=== PATIENT | male | born 1955 | race Caucasian/White ===

== ENCOUNTER → 2017-01-19 | Outpatient (CLI) | payer MEDICARE ==
[2017-01-19 09:35] LABS: HEMATOCRIT 42.2 % (39.2-51.8); WHITE BLOOD COUNT 5.7 x10^3/uL (3.4-10)
[2017-01-19 09:47] LABS: BLOOD UREA NITROGEN 15 mg/dL (7-18)
[2017-01-19 09:59] LABS: ASPARTATE AMINO TRANSFERASE 18 U/L (15-37)
== END | disposition home or self-care (01) ==
LOC: LAB 09:14
PROVIDERS: ATTEND Internal Medicine
DX: E78.2 Mixed hyperlipidemia (principal); E55.9 Vitamin D deficiency, unspecified; G47.01 Insomnia due to medical condition; G47.62 Sleep related leg cramps; G89.4 Chronic pain syndrome
CPT/HCPCS: 36415; 80053; 80061; 81003; 84443; 85027

== ENCOUNTER → 2017-07-21 | Outpatient (CLI) | payer MEDICARE ==
[2017-07-21 10:37] LABS: MEAN CORPUSCULAR HEMOGLOBIN 26.8 pg (27.5-34.5); MEAN CORPUSCULAR HGB CONC 32.8 g/dL (33.2-36.2); MEAN CORPUSCULAR VOLUME 81.6 fL (81-97); MEAN PLATELET VOLUME 8.3 fL (7.4-10.4); PLATELET COUNT 223 x10^3/uL (130-400); RED BLOOD COUNT 5.03 x10^6/uL (4.38-5.82)
[2017-07-21 10:48] LABS: ALANINE AMINOTRANSFERASE 37 U/L (12-78); ALBUMIN 3.9 g/dL (3.4-5.0); ANION GAP 6 mmol/L (5-15); CALCIUM 8.9 mg/dL (8.5-10.1); CHLORIDE 109 mmol/L (98-107); CREATININE 1.08 mg/dL (0.7-1.3)
[2017-07-21 10:52] LABS: ALKALINE PHOSPHATASE 48 U/L (45-117); BILIRUBIN,TOTAL 0.7 mg/dL (0.2-1.0); CHOL/HDL RATIO 3.3; CHOLESTEROL, TOTAL 130 mg/dL (140-239); HDL CHOL % 31 % (26-37); HDL CHOLESTEROL (DIRECT) 40 mg/dL (40-60); LDL CHOLESTEROL,CALCULATED 58 mg/dL (54-169); LDL/HDL RATIO 1.5 (0.5-3.0); TOTAL PROTEIN 7.4 g/dL (6.4-8.2); TRIGLYCERIDES 158 mg/dL (50-200); VLDL CHOLESTEROL 32 mg/dL (0-25)
[2017-07-21 12:22] LABS: HEMOGLOBIN A1C 5.3 % (4.2-6.3)
== END | disposition home or self-care (01) ==
LOC: LAB 10:21
PROVIDERS: ATTEND Internal Medicine
DX: Z12.5 Encounter for screening for malignant neoplasm of prostate (principal); E78.2 Mixed hyperlipidemia; K21.9 Gastro-esophageal reflux disease without esophagitis; G47.01 Insomnia due to medical condition; G47.62 Sleep related leg cramps; R73.09 Other abnormal glucose; E55.9 Vitamin D deficiency, unspecified
CPT/HCPCS: 36415; 80053; 80061; 82306; 83036; 83735; 84153; 85027; G0103

== ENCOUNTER → 2017-08-07 | Outpatient (CLI) | payer MEDICARE ==
[2017-08-07 11:18] LABS: ABSOLUTE RETICS # 0.166 x10^6/uL (0.5-1.5); RED BLOOD COUNT 5.17 x10^6/uL (4.38-5.82); RETICULOCYTE COUNT % 3.2 % (0.5-1.5)
[2017-08-07 12:12] LABS: % IRON SATURATION 20 % (20-55); IRON LEVEL 58 mcg/dL (65-175); TOTAL IRON BINDING CAPACITY 296 mcg/dL (250-450)
[2017-08-07 12:18] LABS: FOLATE LEVEL > 20.0 ng/mL (3.1-17.5)
== END | disposition home or self-care (01) ==
LOC: LAB 10:54
PROVIDERS: ATTEND Internal Medicine
DX: D64.9 Anemia, unspecified (principal); K21.9 Gastro-esophageal reflux disease without esophagitis; E78.2 Mixed hyperlipidemia; R73.01 Impaired fasting glucose
CPT/HCPCS: 36415; 82607; 82746; 83036; 83540; 83550; 85014; 85018; 85045

== ENCOUNTER 2018-07-23 07:41 | Outpatient (CLI) | payer MEDICARE ==
[2018-07-23 07:56] LABS: MEAN CORPUSCULAR HGB CONC 32.6 g/dL (33.2-36.2); MEAN CORPUSCULAR VOLUME 82.8 fL (81-97); MEAN PLATELET VOLUME 7.9 fL (7.4-10.4); PLATELET COUNT 243 x10^3/uL (130-400); RED BLOOD COUNT 5.13 x10^6/uL (4.38-5.82)
[2018-07-23 08:02] LABS: MICROSCOPIC NOT IND
[2018-07-23 08:09] LABS: ALANINE AMINOTRANSFERASE 35 U/L (12-78); ALBUMIN 3.9 g/dL (3.4-5.0); ANION GAP 7 mmol/L (5-15); CHLORIDE 109 mmol/L (98-107); CHOLESTEROL, TOTAL 121 mg/dL (140-239); CREATININE 1.14 mg/dL (0.7-1.3)
[2018-07-23 08:11] LABS: ALKALINE PHOSPHATASE 52 U/L (45-117); BILIRUBIN,TOTAL 0.7 mg/dL (0.2-1.0); CHOL/HDL RATIO 3.2; HDL CHOL % 31 % (26-37); HDL CHOLESTEROL (DIRECT) 38 mg/dL (40-60); LDL CHOLESTEROL,CALCULATED 43 mg/dL (54-169); LDL/HDL RATIO 1.1 (0.5-3.0); TOTAL PROTEIN 7.5 g/dL (6.4-8.2); TRIGLYCERIDES 200 mg/dL (50-200); VLDL CHOLESTEROL 40 mg/dL (0-25)
== END 2018-07-23 23:59 | disposition home or self-care (01) ==
LOC: LAB 07:41
PROVIDERS: ATTEND Internal Medicine
DX: Z12.5 Encounter for screening for malignant neoplasm of prostate (principal); E55.9 Vitamin D deficiency, unspecified; E78.2 Mixed hyperlipidemia; K21.9 Gastro-esophageal reflux disease without esophagitis; R25.1 Tremor, unspecified; R51 Headache; R53.82 Chronic fatigue, unspecified; R60.0 Localized edema; R73.01 Impaired fasting glucose; R82.90 Unspecified abnormal findings in urine
CPT/HCPCS: 36415; 80053; 80061; 81003; 85027; G0103; 84153

== ENCOUNTER → 2019-01-21 | Outpatient (CLI) | payer MEDICARE ==
[2019-01-21 08:54] LABS: BASOPHILS # (AUTO) 0.03 x10^3/uL (0-0.1); BASOPHILS % (AUTO) 1 % (0-1); EOSINOPHILS # (AUTO) 0.13 x10^3/uL (0-0.4); EOSINOPHILS % (AUTO) 3 % (1-7); LYMPHOCYTES # (AUTO) 1.28 x10^3/uL (1-3.4); LYMPHOCYTES % (AUTO) 27 % (22-44); MD NO; MEAN CORPUSCULAR HEMOGLOBIN 26.8 pg (27.5-34.5); MEAN CORPUSCULAR HGB CONC 32.5 g/dL (33.2-36.2); MEAN CORPUSCULAR VOLUME 82.4 fL (81-97); MEAN PLATELET VOLUME 8.1 fL (7.4-10.4); MONOCYTES # (AUTO) 0.42 x10^3/uL (0.2-0.8); MONOCYTES % (AUTO) 9 % (2-9); NEUTROPHILS # (AUTO) 2.82 x10^3/uL (1.8-6.8); NEUTROPHILS % (AUTO) 60 % (42-75); PLATELET COUNT 234 x10^3/uL (130-400); RED BLOOD COUNT 5.25 x10^6/uL (4.38-5.82); RED CELL DISTRIBUTION WIDTH 17.8 % (9.4-14.8)
[2019-01-21 09:04] LABS: ALANINE AMINOTRANSFERASE 37 U/L (12-78); ALBUMIN 3.9 g/dL (3.4-5.0); ANION GAP 6 mmol/L (5-15); CALCIUM 8.9 mg/dL (8.5-10.1); CHLORIDE 110 mmol/L (98-107)
[2019-01-21 09:07] LABS: ALKALINE PHOSPHATASE 51 U/L (45-117); BILIRUBIN,TOTAL 0.6 mg/dL (0.2-1.0); CHOL/HDL RATIO 3.4; CHOLESTEROL, TOTAL 135 mg/dL (140-239); CREATININE 1.07 mg/dL (0.7-1.3); HDL CHOL % 30 % (26-37); HDL CHOLESTEROL (DIRECT) 40 mg/dL (40-60); LDL CHOLESTEROL,CALCULATED 57 mg/dL (54-169); LDL/HDL RATIO 1.4 (0.5-3.0); TOTAL PROTEIN 7.6 g/dL (6.4-8.2); TRIGLYCERIDES 190 mg/dL (50-200); VLDL CHOLESTEROL 38 mg/dL (0-25)
== END | disposition home or self-care (01) ==
LOC: LAB 08:39
PROVIDERS: ATTEND Internal Medicine
DX: D64.9 Anemia, unspecified (principal); E78.2 Mixed hyperlipidemia; G89.4 Chronic pain syndrome; K21.9 Gastro-esophageal reflux disease without esophagitis; R25.1 Tremor, unspecified; R53.83 Other fatigue; R60.0 Localized edema; R73.01 Impaired fasting glucose; R51 Headache
CPT/HCPCS: 36415; 80053; 80061; 85025